=== PATIENT | male | born 1960 | race Caucasian/White ===

== ENCOUNTER 2017-01-17 16:20 | Emergency (ER) | payer OTHER ==
[2017-01-17] MEDS ORDERED: diphenhydrAMINE HCL 25 MG CAPSULE (FP) PO ONE ×2 (16:34→16:44)
[2017-01-17] MEDS ORDERED: predniSONE 20 MG TABLET (UD) PO ONE (16:34)
--- NOTE | 2017-01-17 16:34 | PDOC ---
History of Present Illness <Lucinda Henry - Last Filed: 01/17/17 16:36> - History of Present Illness Initial Comments: 01/17/17 16:38 The patient is a 56 year old male with no pertinent past medical history , presents to the emergency department with a complaint of a rash to his scalp since this morning. Patient had applied a hair dye to the scalp last night and when he woke up he had the rash. The rash is itchy. The rash has also spread to his hands which he used to scratch his head. Denies fever or chills. Denies shortness of breath, chest pain, cough or difficulty swallowing. History obtained through relative in the room <Jefe Robb - Last Filed: 01/17/17 16:39> - General Chief Complaint: Rash Stated Complaint: RASH TO SCALP Time Seen by Provider: 01/17/17 16:24 Past History <Lucinda Henry - Last Filed: 01/17/17 16:36> <Jefe Robb - Last Filed: 01/17/17 16:39> - Past Medical History Allergies/Adverse Reactions: Allergies Allergy/AdvReac Type Severity Reaction Status Date / Time No Known Drug Allergies Allergy Verified 01/17/17 16:26 Home Medications: Ambulatory Orders Prednisone [Deltasone -] 40 mg PO DAILY #8 tablet 01/17/17 Review of Systems - Review of Systems Able to Perform ROS?: Yes (Obtained though relative) Comments:: 01/17/17 16:38 GENERAL/CONSTITUTIONAL: No fever or chills. No weakness. HEAD, EYES, EARS, NOSE AND THROAT: Yes: Rash to scalp No change in vision. No ear pain or discharge. No sore throat. RESPIRATORY: No cough, wheezing, or hemoptysis. SKIN: Yes: rash to scalp Is the patient limited Portuguese proficient: No <Jefe Robb - Last Filed: 01/17/17 16:39> *Physical Exam - Physical Exam Comments: GENERAL: Awake, alert, and fully oriented, in no acute distress HEAD: No signs of trauma EYES: PERRLA, EOMI, sclera anicteric, conjunctiva clear ENT: Auricles normal inspection, hearing grossly normal, nares patent, oropharynx clear without exudates. Moist mucosa NECK: Normal ROM, supple, no lymphadenopathy, JVD, or masses LUNGS: Breath sounds equal, clear to auscultation bilaterally. No wheezes, and no crackles HEART: Regular rate and rhythm, normal S1 and S2, no murmurs, rubs or gallops SKIN: Warm, Dry, normal turgor. +Erythema to the scalp, with excoriations and areas of clear weeping drainage. +Erythema and mild edema to the hands B/L. <Lucinda Henry - Last Filed: 01/17/17 16:36> - Vital Signs Last Vital Signs Temp Pulse Resp BP Pulse Ox 98.3 F 68 18 133/62 99 01/17/17 16:20 01/17/17 16:20 01/17/17 16:20 01/17/17 16:20 01/17/17 16:20 <Jefe Robb - Last Filed: 01/17/17 16:39> *DC/Admit/Observation/Transfer - Discharge Dispostion Admit: No <Lucinda Henry - Last Filed: 01/17/17 16:36> - Attestations Scribe Attestion: 01/17/17 16:39 Documentation prepared by Jefe Robb, acting as medical aides teacher for Lucinda Henry MD <Jefe Robb - Last Filed: 01/17/17 16:39> Diagnosis at time of Disposition: Contact dermatitis Qualifiers: Contact dermatitis type: allergic Contact dermatitis trigger: dye Qualified Code(s): L23.4 - Allergic contact dermatitis due to dyes - Discharge Dispostion Disposition: HOME Condition at time of disposition: Stable - Prescriptions Prescriptions: Prednisone [Deltasone -] 40 mg PO DAILY #8 tablet - Patient Instructions Printed Discharge Instructions: DI for Contact Dermatitis Additional Instructions: BENADRYL (AVAILABLE OVER THE COUNTER) 25 MG EVERY 6 HOURS NEEDED FOR ITCHING. PREDNISONE DAILY FOR 5 DAYS- FIRST DOSE WAS GIVEN IN THE ER. AVEENO BATH PACKETS- SOAK IN THE BATH TO HELP SOOTHE THE RASH AND ITCHING.
[2017-01-17 16:41] VITALS: BP 133/62; PULSE 68; TEMP 98.3; BMI 29.2
[2017-01-17] MEDS ORDERED: predniSONE 20 MG TABLET (UD) ONE (16:44)
== END 2017-01-17 17:00 | disposition home or self-care (01) ==
LOC: FER 16:20
DX: L23.4 Allergic contact dermatitis due to dyes (principal)
CPT/HCPCS: 99283-25

== ENCOUNTER 2018-12-08 17:02 | Emergency (ER) | payer OTHER ==
[2018-12-08 17:57] VITALS: BP 154/92; PULSE 71; TEMP 97.9; BMI 29.0
--- NOTE | 2018-12-08 19:08 | PDOC ---
History of Present Illness - General Chief Complaint: Cold Symptoms Stated Complaint: COUGH/SENT BY PCP Time Seen by Provider: 12/08/18 18:31 History Source: Patient Exam Limitations: Clinical Condition - History of Present Illness Initial Comments: 12/08/18 19:21 Patient with no syndrome past medical history present with complaint of three- day history of nasal congestion and nonproductive persistent cough and was sent by PCP with a prescription for chest x-ray to rule out pneumonia. Patient denies fever, chills, shortness of breath. Patient denies any other symptoms Timing/Duration: other (3 days) Past History - Past Medical History Allergies/Adverse Reactions: Allergies Allergy/AdvReac Type Severity Reaction Status Date / Time No Known Drug Allergies Allergy Verified 12/08/18 17:55 Home Medications: Ambulatory Orders Benzonatate [Tessalon Pearls -] 100 mg PO TID PRN #20 capsule 12/08/18 Loratadine 10 mg PO DAILY #10 capsule 12/08/18 Prednisone [Deltasone] 20 mg PO BID 5 Days #10 tablet 12/08/18 - Surgical History Appendectomy: Yes - Suicide/Smoking/Psychosocial Hx Smoking History: Current every day smoker Number of Cigarettes Smoked Daily: 6 Information on smoking cessation initiated: Yes Hx Alcohol Use: No Drug/Substance Use Hx: No Review of Systems - Review of Systems Able to Perform ROS?: Yes Is the patient limited Kinyarwanda proficient: No Constitutional: No: Chills, Fever, Malaise HEENTM: Yes: Symptoms Reported, See HPI, Nose Congestion. No: Eye Pain, Blurred Vision, Tearing, Recent change in vision, Double Vision, Cataracts, Ear Pain, Ocular Prothesis, Ear Discharge, Nose Pain, Tinnitus, Nose Bleeding, Hearing Loss, Throat Pain, Throat Swelling, Mouth Pain, Dental Problems, Difficulty Swallowing, Mouth Swelling, Other Respiratory: Yes: Symptoms reported, See HPI, Cough. No: Orthopnea, Shortness of Breath, SOB with Exertion, SOB at Rest, Stridor, Wheezing, Productive cough, Hemoptysis, Other Cardiac (ROS): No: Symptoms Reported, See HPI, Chest Pain, Edema, Irregular Heart Rate, Lightheadedness, Palpitations, Syncope, Chest Tightness, Other ABD/GI: No: Nausea, Vomiting All Other Systems: Reviewed and Negative *Physical Exam - Vital Signs Last Vital Signs Temp Pulse Resp BP Pulse Ox 97.9 F 71 20 154/92 98 12/08/18 17:55 12/08/18 17:55 12/08/18 17:55 12/08/18 17:55 12/08/18 17:55 - Physical Exam Comments: 12/08/18 19:22 GENERAL: Well developed, well nourished. Awake and alert. No acute distress. HEENT: Normocephalic, atraumatic. PERRLA, EOMI. No conjunctival pallor. Sclera are non-icteric. Moist mucous membranes. Oropharynx is clear. NECK: Supple. Full ROM. CARDIOVASCULAR: Regular rate and rhythm. No murmurs, rubs, or gallops. Distal pulses are 2+ and symmetric. PULMONARY: No evidence of respiratory distress. Lungs clear to auscultation bilaterally. No wheezing, rales or rhonchi. ABDOMINAL: Soft. Non-tender. Non-distended. No rebound or guarding. No organomegaly. Normoactive bowel sounds. EXTREMITIES: No cyanosis. SKIN: Warm and dry. Normal capillary refill. No rashes. No jaundice. NEUROLOGICAL: Alert, awake, appropriate. Gait is normal without ataxia. PSYCHIATRIC: Cooperative. Good eye contact. Appropriate mood General Appearance: Yes: Nourished, Appropriately Dressed. No: Apparent Distress Moderate Sedation - Procedure Monitoring Vital Signs: Procedure Monitoring Vital Signs Temperature 97.9 F 12/08/18 17:55 Pulse Rate 71 12/08/18 17:55 Respiratory Rate 20 12/08/18 17:55 Blood Pressure 154/92 12/08/18 17:55 O2 Sat by Pulse Oximetry (%) 98 12/08/18 17:55 ED Treatment Course - RADIOLOGY Radiology Studies Ordered: Category Date Time Status CHEST PA & LAT [RAD] Stat Radiology 12/08/18 18:39 Ordered Medical Decision Making - Medical Decision Making 12/08/18 19:21 Patient with no syndrome past medical history present with complaint of three- day history of nasal congestion and nonproductive persistent cough and was sent by PCP with a prescription for chest x-ray to rule out pneumonia but presented to ED and checked in instead of radialogy. Lungs clear to auscultation bilateral. Patient no acute respiratory distress. Chest x-ray shows no acute infiltrate. Patient is stable for outpatient treatment for URI with PCP follow-up. *DC/Admit/Observation/Transfer Diagnosis at time of Disposition: Cough URI (upper respiratory infection) Qualifiers: URI type: unspecified URI Qualified Code(s): J06.9 - Acute upper respiratory infection, unspecified - Discharge Dispostion Disposition: HOME Condition at time of disposition: Stable Decision to Admit order: No - Prescriptions Prescriptions: Benzonatate [Tessalon Pearls -] 100 mg PO TID PRN #20 capsule PRN Reason: Cough Loratadine 10 mg PO DAILY #10 capsule Prednisone [Deltasone] 20 mg PO BID 5 Days #10 tablet - Referrals Referrals: Jean Gregory MD [Primary Care Provider] - - Patient Instructions Printed Discharge Instructions: DI for Viral Upper Respiratory Infection -- Adult Additional Instructions: Chest x-ray shows no pneumonia. Take medication as prescribed. Follow-up with primary care - Post Discharge Activity
== END 2018-12-08 19:24 | disposition home or self-care (01) ==
LOC: JERFT 17:02
DX: J06.9 Acute upper respiratory infection, unspecified (principal)
CPT/HCPCS: 71046-TC-FY; 99281-25

== ENCOUNTER 2019-06-16 11:24 | Emergency (ER) | payer OTHER ==
--- NOTE | 2019-06-16 11:31 | PDOC ---
History of Present Illness - General Chief Complaint: Pain, Acute Stated Complaint: RIGHT HIP AND LEG PAIN Time Seen by Provider: 06/16/19 11:30 - History of Present Illness Initial Comments: 06/16/19 15:25 Chief complaint: Back pain History of present illness: Patient complains of worsening right lower back pain radiating into the buttock for approximately one week. No acute injury. Review of systems: No distal numbness tingling pain or weakness of the lower extremities. No change in bowel or bladder function. No chest pain, abdominal pain, nausea, vomiting, diarrhea, visual or focal neurologic symptoms, unsteadiness of gait. He does admit feeling warm but has not taken his temperature Past medical history: Patient denies any current medical or surgical problems. He had appendectomy in the past. Specifically, he is unaware of any cardiac, pulmonary, or metabolic diseases Social history: No tobacco alcohol or nonprescription drugs. Lives with family. Fully active Family history: Reviewed and noncontributory Physical exam: Alert oriented well-developed well-nourished no acute distress cheerful and cooperative. Specifically, he is standing and ambulating without visible impairment Afebrile, vital signs normal HEENT clear Neck supple without bruit mass or nodes Lungs clear CV regular without murmur rub or gallop Abdomen soft nontender without mass or organomegaly LS-spine shows some straightening of the normal lumbar lordosis and the patient indicates right sacral pain, radiating to the right buttock. Range of motion of the hips is full without pain or impingement. Impression: Musculoskeletal low back pain. Plan: CBC, chemistries, and urinalysis are normal. No sign of concurrent medical illness. Patient is much improved with the administration of Toradol, fully ambulatory and cheerful at discharge with the son to continue medication and follow up as necessary with orthopedist. Past History - Past Medical History Allergies/Adverse Reactions: Allergies Allergy/AdvReac Type Severity Reaction Status Date / Time No Known Drug Allergies Allergy Verified 06/16/19 11:26 Home Medications: Ambulatory Orders Cyclobenzaprine HCl [Flexeril -] 10 mg PO TID #15 tablet 06/16/19 Ibuprofen 800 mg PO TID PRN #15 tablet 06/16/19 CVA: No COPD: No CHF: No DVT: No - Surgical History Appendectomy: Yes - Suicide/Smoking/Psychosocial Hx Smoking History: Unknown if ever smoked Number of Cigarettes Smoked Daily: 6 Hx Alcohol Use: No Drug/Substance Use Hx: No *Physical Exam - Vital Signs Last Vital Signs Temp Pulse Resp BP Pulse Ox 98.7 F 60 19 140/90 100 06/16/19 11:25 06/16/19 11:25 06/16/19 11:25 06/16/19 11:25 06/16/19 11:25 ED Treatment Course - LABORATORY CBC & Chemistry Diagram: 06/16/19 12:24 06/16/19 12:24 Medical Decision Making - Medical Decision Making 06/16/19 13:16 CBC, chemistries, urinalysis without significant abnormalities. Patient is febrile with no sign of infection Pain appears to be musculoskeletal and is much improved with medication. He is fully ambulatory and very cheerful that his pain is much better. Discontinue antibiotics. Continue analgesics. Follow-up as necessary with orthopedist. Fully ambulatory and in no distress at discharge with his son to follow-up as directed *DC/Admit/Observation/Transfer Diagnosis at time of Disposition: Musculoskeletal pain - Discharge Dispostion Disposition: HOME Condition at time of disposition: Improved Decision to Admit order: No - Prescriptions Prescriptions: Cyclobenzaprine HCl [Flexeril -] 10 mg PO TID #15 tablet Ibuprofen 800 mg PO TID PRN #15 tablet PRN Reason: Pain - Referrals Referrals: Nick Pantoja MD [Staff Physician] - - Patient Instructions Printed Discharge Instructions: DI for Musculoskeletal Pain - Post Discharge Activity
[2019-06-16 11:32] VITALS: BP 140/90; PULSE 60; TEMP 98.7; BMI 29.5
[2019-06-16] MEDS ORDERED: KETOROLAC TROMETHAMINE 60 MG/2 ML VIAL IM ONE (12:02)
[2019-06-16] MEDS ORDERED: CYCLOBENZAPRINE HCL 10 MG TABLET (FP) PO ONE (12:03)
[2019-06-16] MEDS ORDERED: KETOROLAC TROMETHAMINE 30 MG/1 ML VIAL ONE (12:11)
[2019-06-16] MEDS ORDERED: CYCLOBENZAPRINE HCL 10 MG TABLET (FP) ONE (12:11)
[2019-06-16 12:37] LABS: BASO % 0.7 % (0-2.0); EOS % 4.4 % (0-4.5); HEMOGLOBIN 15.9 GM/dl (11.7-16.9); LYMPH % 44.6 % (8-40); MCH 30.5 pg (25.7-33.7); MCHC 33.8 g/dl (32.0-35.9); MEAN CELL VOLUME 90.3 fl (80-96); MEAN PLT VOLUME 7.9 fl (7.5-11.1); MONO % 8.8 % (3.8-10.2); NEUT % 41.5 % (42.8-82.8); PLATELET COUNT 172 K/MM3 (134-434); RBC 5.21 M/mm3 (4.00-5.60); RDW 12.1 % (11.9-15.9); WHITE BLOOD COUNT 5.4 K/mm3 (4.0-10.8)
[2019-06-16 12:50] LABS: BILIRUBIN,TOTAL 0.4 mg/dl (0.2-1); CALCIUM 8.9 mg/dl (8.5-10); POTASSIUM 4.6 mmol/L (3.5-5.1); TOT PROT 7.2 g/dl (6.4-8.2)
== END 2019-06-16 13:35 | disposition home or self-care (01) ==
LOC: FER 11:24
PROC: 3E0233Z Introduction of Anti-inflammatory into Muscle, Percutaneous Approach (ICD-10-PCS; principal; 2019-06-16)
DX: M79.18 Myalgia, other site (principal)
CPT/HCPCS: 36415; 80053; 81003; 85025; 99282-25

== ENCOUNTER 2019-12-26 15:35 | Emergency (ER) | payer OTHER ==
--- NOTE | 2019-12-26 15:48 | PDOC ---
Attending Attestation - Resident Resident Name: Alvin Guidry - ED Attending Attestation I have performed the following: I have examined & evaluated the patient, The case was reviewed & discussed with the resident, I agree w/resident's findings & plan, Exceptions are as noted - HPI HPI: 12/26/19 18:11 2 days fever body aches nonproductive cough. No abdominal pain nausea vomiting or dysuria History of [id number] diabetes on Januvia - Physicial Exam PE: 12/26/19 18:12 Temperature 100.1 remainder vital signs normal HEENT: Mild nasal congestion, mild pharyngeal injection without swelling mass or exudate Neck supple without bruit mass or nodes Chest clear, full breath sounds bilaterally, no wheezes rales or rhonchi CV regular without murmur rub or gallop Abdomen soft nontender without mass organomegaly Skin clear, no rash, adequate turgor and wet mucous membranes Neurological intact - Medical Decision Making 12/26/19 18:15 Specimen: Febrile illness, flulike symptoms, probable influenza. Rule out pneumonia, rule out occult UTI Plan: Chest x-ray is clear. CBC and chemistries without significant abnormalities. Glucose is 119. Normal white count. urinalysis shows blood, but no sign of infection. Should be followed up by urologist Swab is positive for influenza B. Rest fluids and Tamiflu. Close follow-up primary physician 1 to 2 days. Fully ambulatory in no significant pain or other distress at discharge with family to follow-up as directed 12/26/19 18:17
--- NOTE | 2019-12-26 15:52 | PDOC ---
History of Present Illness - General Chief Complaint: Respiratory Stated Complaint: FEVER Time Seen by Provider: 12/26/19 15:48 History Source: Patient Exam Limitations: No Limitations - History of Present Illness Initial Comments: 12/26/19 16:03 59yM w PMHx DM presenting w 2d fevers (max 103), mansoor frontal headache, non productive cough, generalized body aches. Taking advil without relief, last use this morning. No sick contacts. Denies nausea/vomiting, nasal congestion, neck stiffness/pain, SOB, ABD pain, urinary/bowel mvmt changes. Past History - Past Medical History Allergies/Adverse Reactions: Allergies Allergy/AdvReac Type Severity Reaction Status Date / Time No Known Drug Allergies Allergy Verified 12/26/19 15:44 Home Medications: Ambulatory Orders Ibuprofen 800 mg PO TID PRN #15 tablet 06/16/19 Oseltamivir Phosphate [Tamiflu -] 75 mg PO BID #10 capsule 12/26/19 Sitagliptin Phosphate [Januvia] 50 mg PO DAILY 12/26/19 CVA: No COPD: No CHF: No DVT: No - Surgical History Appendectomy: Yes - Psycho Social/Smoking Cessation Hx Smoking History: Unknown if ever smoked Number of Cigarettes Smoked Daily: 6 Hx Alcohol Use: No Drug/Substance Use Hx: No Review of Systems - Review of Systems Constitutional: Yes: Fever. No: Chills HEENTM: No: Eye Pain, Nose Congestion Respiratory: Yes: Cough. No: Shortness of Breath Cardiac (ROS): No: Edema, Palpitations ABD/GI: No: Abdominal Distended, Constipated, Diarrhea, Nausea, Vomiting : No: Burning, Dysuria Musculoskeletal: Yes: Muscle Pain. No: Back Pain, Joint Pain, Neck Pain, Joint Stiffness Integumentary: No: Bruising, Erythema Neurological: Yes: Headache. No: Seizure, Tingling Psychiatric: No: Anxiety, Depression Endocrine: No: Intolerance to Cold, Intolerance to Heat Hematologic/Lymphatic: No: Anemia, Blood Clots *Physical Exam - Physical Exam General Appearance: Yes: Nourished, Appropriately Dressed, Mild Distress HEENT: positive: EOMI, BRENDA, Normal Voice, Hearing Grossly Normal. negative: Scleral Icterus (R), Scleral Icterus (L), Nasal Congestion Neck: positive: Supple. negative: Tender, Rigid, Decreased range of motion ( full ROM), Rigidity Respiratory/Chest: positive: Lungs Clear, Normal Breath Sounds. negative: Chest Tender, Respiratory Distress, Crackles, Rales, Rhonchi, Stridor, Wheezing Cardiovascular: positive: Regular Rhythm, Regular Rate, S1, S2. negative: Edema , Murmur Gastrointestinal/Abdominal: positive: Normal Bowel Sounds, Flat, Soft. negative : Tender, Organomegaly Extremity: positive: Delayed Capillary Refill Integumentary: positive: Normal Color, Dry. negative: Rash Neurologic: positive: interior design instructor II-XII NML intact, Fully Oriented, Alert, Normal Response, Responsive. negative: Numbness, Confused, Disoriented ED Treatment Course - LABORATORY CBC & Chemistry Diagram: 12/26/19 17:00 12/26/19 17:00 Medical Decision Making - Medical Decision Making 12/26/19 16:05 CXR - clear lung cruz --- 59yM w PMHx DM presenting w 2d fevers (max 103), mansoor frontal headache, non productive cough, generalized body aches d/ t influenza B. Low concern for meningitis (no neck stiffness) vs PNA (clear lung cruz CXR) Given 1L NS, tylenol DC home w tamiflu Discharge - Discharge Information Problems reviewed: Yes Clinical Impression/Diagnosis: Influenza B Condition: Good Disposition: HOME - Admission No - Follow up/Referral Referrals: Jean Gregory MD [Primary Care Provider] - - Patient Discharge Instructions Patient Printed Discharge Instructions: DI for Influenza -- Adult Additional Instructions: Take the prescribed Tamiflu as directed - Post Discharge Activity
[2019-12-26] MEDS ORDERED: SODIUM CHLORIDE 0.9% 500 ML INFUS.BAG IV ONE (16:02)
[2019-12-26] MEDS ORDERED: ACETAMINOPHEN 1000 MG/100 ML VIAL (NON FORMULARY) IVPB ONE (16:02)
[2019-12-26 16:03] VITALS: BP 140/79; PULSE 84; TEMP 100.1; BMI 26.5
[2019-12-26] MEDS ORDERED: ACETAMINOPHEN INJECTION 100 ML IVPB ONE (16:51)
[2019-12-26 17:21] LABS: BASO % 0.8 % (0-2.0); EOS % 0.3 % (0-4.5); HEMATOCRIT 46.5 % (35.4-49); HEMOGLOBIN 15.9 GM/dl (11.7-16.9); LYMPH % 21.1 % (8-40); MCH 30.7 pg (25.7-33.7); MCHC 34.2 g/dl (32.0-35.9); MEAN CELL VOLUME 89.6 fl (80-96); MEAN PLT VOLUME 8.4 fl (7.5-11.1); MONO % 11.7 % (3.8-10.2); NEUT % 66.1 % (42.8-82.8); PLATELET COUNT 181 K/MM3 (134-434); RBC 5.19 M/mm3 (4.00-5.60); RDW 12.1 % (11.9-15.9); WHITE BLOOD COUNT 7.3 K/mm3 (4.0-10.8)
[2019-12-26 17:37] LABS: ALBUMIN 3.8 g/dl (3.4-5.0); BILIRUBIN,TOTAL 0.4 mg/dl (0.2-1); CALCIUM 8.9 mg/dl (8.5-10); CREATININE 1.3 mg/dl (0.55-1.3); POTASSIUM 3.9 mmol/L (3.5-5.1); TOT PROT 7.2 g/dl (6.4-8.2)
[2019-12-26] MEDS ORDERED: OSELTAMIVIR PHOSPHATE 75 MG CAPSULE PO ONE (18:15)
[2019-12-26] MEDS ORDERED: OSELTAMIVIR PHOSPHATE 75 MG CAPSULE ONE (18:16)
== END 2019-12-26 18:24 | disposition home or self-care (01) ==
LOC: FER 15:35
PROC: 3E033NZ Introduction of Analgesics, Hypnotics, Sedatives into Peripheral Vein, Percutaneous Approach (ICD-10-PCS; principal; 2019-12-26)
DX: J10.1 Influenza due to other identified influenza virus with other respiratory manifestations (principal); E11.9 Type 2 diabetes mellitus without complications
CPT/HCPCS: 36415; 71046-TC-FY; 80053; 81003; 81015; 85025; 87804; 96374; 99284-25; J0131

== ENCOUNTER 2022-04-19 21:18 | Emergency (ER) | payer OTHER ==
[2022-04-19 21:25] VITALS: BP 137/99; PULSE 90; TEMP 98.3; BMI 28.0
[2022-04-19] MEDS ORDERED: IBUPROFEN 600 MG TABLET (FP) PO ONE ×2 (21:32→21:34)
[2022-04-19] MEDS ORDERED: AMOXICILLIN 250 MG CAPSULE ONE (21:32)
[2022-04-19] MEDS ORDERED: AMOXICILLIN 250 MG CAPSULE PO ONE (21:33)
== END 2022-04-19 21:45 | disposition home or self-care (01) ==
LOC: FER 21:18
DX: K04.7 Periapical abscess without sinus (principal)
CPT/HCPCS: 99283-25